=== PATIENT | male | born 1945 | race Caucasian/White ===

== ENCOUNTER 2023-11-24 18:35 | Emergency (ER) | payer OTHER ==
[2023-11-24] MEDS: Sodium Chloride 0.9% 1,000 ML IV STA ×2 (18:56→20:46)
[2023-11-24 19:07] LABS: BASE EXCESS VENOUS 5.4 (-2.0-3.0); PH,VENOUS 7.47 (7.31-7.41)
[2023-11-24 19:11] LABS: HEMATOCRIT 29.7 % (42.0-52.0); HEMOGLOBIN 10.3 g/dL (14.0-18.0); IMMATURE GRAN ABSOLUTE AUTO 0.02 K/uL (0.00-0.05); IMMATURE GRAN PERCENT AUTO 0.2 % (0.0-0.4); LYMPHOCYTES ABSOLUTE AUTO 0.38 K/uL (1.00-4.80); LYMPHOCYTES PERCENT AUTO 4.5 % (24.0-44.0); MEAN CORPUSCULAR HEMOGLOBIN 31.6 pg (28.0-32.0); MEAN CORPUSCULAR HGB CONC 34.7 g/dL (32.0-36.0); MEAN CORPUSCULAR VOLUME 91.1 fL (83.0-99.0); MONOCYTES PERCENT AUTO 9.5 % (0.0-8.0); NEUTROPHILS ABSOLUTE AUTO 7.18 K/uL (1.80-7.70); NEUTROPHILS PERCENT AUTO 85.8 % (41.0-71.0); PLATELET COUNT,PLT 280 K/uL (150-400); RED BLOOD CELL COUNT 3.26 M/uL (4.52-5.90); WHITE BLOOD CELL COUNT,WBC 8.38 K/uL (3.9-11.3)
[2023-11-24 19:32] LABS: A/G RATIO 0.6 (0.9-1.6); ALBUMIN 1.9 g/dL (3.4-5.0); BILIRUBIN TOTAL 0.3 mg/dL (0.2-1.0); CALCIUM 7.5 mg/dL (8.5-10.1); CARBON DIOXIDE,CO2 28.5 mmol/L (21.0-32.0); CREATININE 0.6 mg/dL (0.8-1.3); POTASSIUM,K 4.4 mmol/L (3.5-5.1); PROTEIN TOTAL,TP 5.2 g/dL (6.4-8.2)
[2023-11-24 19:34] LABS: MAGNESIUM 2.1 mg/dL (1.8-2.4)
[2023-11-24] MEDS: Levofloxacin/Dextrose 5%-Water 750 MG in Premix Bag 1 BAG IV STA (20:47)
== END 2023-11-24 22:24 | disposition home or self-care (01) ==
LOC: MW.ED 18:35
DX: R53.83 Other fatigue (principal); E87.1 Hypo-osmolality and hyponatremia; J18.9 Pneumonia, unspecified organism; Z79.899 Other long term (current) drug therapy; Z88.5 Allergy status to narcotic agent; Z75.8 Other problems related to medical facilities and other health care
CPT/HCPCS: 36415; 71045; 80053; 82803; 83735; 84484; 85025; 93005; 96361; 96365; 99285; J1956; J7030; 93010; 99283

== ENCOUNTER 2023-12-11 13:16 | Inpatient (IN) | payer OTHER ==
[2023-12-11] MEDS: Sodium Chloride 0.9% 10 ML Syringe FLUSH PRN (13:55)
[2023-12-11] MEDS: Sodium Chloride 0.9% 2.5 ML Syringe FLUSH PRN (13:55)
[2023-12-11] MEDS: Albuterol/Ipratropium 3.0-0.5 MG/3 ML Neb Soln NEB ONE ×2 (13:55→16:37)
[2023-12-11 14:14] LABS: BASE EXCESS VENOUS 6.7 (-2.0-3.0); PH,VENOUS 7.38 (7.31-7.41)
[2023-12-11 14:20] LABS: BASOPHILS ABSOLUTE AUTO 0.01 K/uL (0.00-0.20); BASOPHILS PERCENT AUTO 0.1 % (0.0-1.0); EOSINOPHILS ABSOLUTE AUTO 0.01 K/uL (0.00-0.45); EOSINOPHILS PERCENT AUTO 0.1 % (0.0-6.0); HEMATOCRIT 28.9 % (42.0-52.0); HEMOGLOBIN 9.7 g/dL (14.0-18.0); IMMATURE GRAN ABSOLUTE AUTO 0.28 K/uL (0.00-0.05); IMMATURE GRAN PERCENT AUTO 2.5 % (0.0-0.4); LYMPHOCYTES ABSOLUTE AUTO 0.77 K/uL (1.00-4.80); LYMPHOCYTES PERCENT AUTO 6.8 % (24.0-44.0); MEAN CORPUSCULAR HGB CONC 33.6 g/dL (32.0-36.0); MEAN CORPUSCULAR VOLUME 95.4 fL (83.0-99.0); MEAN PLATELET VOLUME 8.5 fL (9.4-12.4); MONOCYTES ABSOLUTE AUTO 0.62 K/uL (0.00-0.80); MONOCYTES PERCENT AUTO 5.5 % (0.0-8.0); NEUTROPHILS ABSOLUTE AUTO 9.67 K/uL (1.80-7.70); PLATELET COUNT,PLT 314 K/uL (150-400); RED BLOOD CELL COUNT 3.03 M/uL (4.52-5.90); WHITE BLOOD CELL COUNT,WBC 11.36 K/uL (3.9-11.3)
[2023-12-11] MEDS: Sodium Chloride 0.9% 500 ML IV SCH (14:22)
[2023-12-11 14:39] LABS: A/G RATIO 0.5 (0.9-1.6); ALBUMIN 1.7 g/dL (3.4-5.0); BILIRUBIN TOTAL 0.2 mg/dL (0.2-1.0); CALCIUM 7.7 mg/dL (8.5-10.1); CARBON DIOXIDE,CO2 32.3 mmol/L (21.0-32.0); CREATININE 0.6 mg/dL (0.8-1.3); EST CRCL DRUG DOSING (CG) 68.06 mL/min; MAGNESIUM 1.9 mg/dL (1.8-2.4); POTASSIUM,K 4.6 mmol/L (3.5-5.1); PROTEIN TOTAL,TP 5.1 g/dL (6.4-8.2)
[2023-12-11] MEDS: Sodium Chloride 0.9% 1,000 ML IV ONE ×2 (15:28→16:41)
[2023-12-11] MEDS: Cefepime 2 GM in Sodium Chloride 0.9% 50 ML IV ONE (15:30)
[2023-12-11] MEDS: Albuterol 0.083% 2.5 MG/3 ML Neb Soln NEB ONE (16:37)
[2023-12-11] MEDS: methylPREDNISolone Sodium Succinate 125 MG/2 ML SDV IVPUSH ONE (16:38)
[2023-12-11 16:49] LABS: LACTIC ACID 1.4 mmol/L (0.4-2.0)
[2023-12-11] MEDS: Midazolam 1 MG/ML 2 ML SDV IVPUSH ONE (17:22)
[2023-12-11] MEDS: Iopamidol 755 MG/ML 500 ML Multipack Bottle IVPUSH STA (17:28)
[2023-12-11 17:48] LABS: BASE EXCESS ARTERIAL 2.7 (-2.0-3.0); BICARBONATE,ARTERIAL 28 mEq/L (22-26); PCO2 ARTERIAL 49 mmHG (35-45); PO2 ARTERIAL 72 mmHG (80-105)
[2023-12-11 19:26] LABS: BODY FLUID TYPE PL
[2023-12-11] MEDS: Lidocaine 1% with EPINEPHrine 1:200,000 30 ML SDV INJECT ONE (19:32)
[2023-12-11 19:35] LABS: BODY FLUID TYPE PL
[2023-12-11 19:41] LABS: APPEARANCE,BODY FLUID CLOUDY; COLOR,BODY FLUID YELLOW
[2023-12-11 19:42] LABS: WBC BODY FLUID 215 /uL
[2023-12-11 19:43] LABS: RBC,BODY FLUID < 3000 /uL
[2023-12-11 19:56] LABS: GLUCOSE,BODY FLUID 107 mg/dL; PROTEIN,BODY FLUID 1.6 g/dL
[2023-12-12] MEDS: Azithromycin 500 MG in Sodium Chloride 0.9% 250 ML IV SCH (01:24)
[2023-12-12] MEDS: Cefepime 2 GM in Sodium Chloride 0.9% 50 ML IV SCH (02:53)
[2023-12-12] MEDS ORDERED: levETIRAcetam 500 MG Tab PO SCH (09:00)
[2023-12-12] MEDS: levETIRAcetam 500 MG Tab PO SCH (10:16)
[2023-12-12] MEDS: Furosemide 40 MG/4 ML VIAL IVPUSH SCH (11:58)
[2023-12-12] MEDS: Melatonin 3 MG Tab PO PRN (21:52)
[2023-12-13] MEDS: HYDROmorphone 0.5 MG/0.5 ML Syringe ONE (12:33)
[2023-12-13] MEDS ORDERED: Naloxone 0.4 MG/ML SDV IVPUSH PRN (13:50)
[2023-12-13] MEDS: HYDROmorphone 0.5 MG/0.5 ML Syringe IVPUSH PRN (21:39)
[2023-12-15] MEDS: LORazepam ORAL Concentrate 1MG/0.5ML U/D PO PRN (13:58)
== END 2023-12-16 12:15 | disposition hospice, home (50) | DRG 180 ==
LOC: MW.ED 13:16 → MW.MS 18:52 → OBSVTOIN 18:52
PROVIDERS: ADMIT Internal Medicine; ATTEND Internal Medicine
PROC: 5A09357 Assistance with Respiratory Ventilation, Less than 24 Consecutive Hours, Continuous Positive Airway Pressure (ICD-10-PCS; principal; 2023-12-11)
PROC: 4A13XR1 Monitoring of Arterial Saturation, Peripheral, External Approach (ICD-10-PCS; 2023-12-11)
DX: C34.91 Malignant neoplasm of unspecified part of right bronchus or lung (principal); J18.9 Pneumonia, unspecified organism; J96.01 Acute respiratory failure with hypoxia; C79.9 Secondary malignant neoplasm of unspecified site; J91.0 Malignant pleural effusion; I10 Essential (primary) hypertension; T45.1X5A Adverse effect of antineoplastic and immunosuppressive drugs, initial encounter; I95.9 Hypotension, unspecified; Z66 Do not resuscitate; Z51.5 Encounter for palliative care; R53.83 Other fatigue; J44.9 Chronic obstructive pulmonary disease, unspecified; E78.00 Pure hypercholesterolemia, unspecified; G89.29 Other chronic pain; M54.2 Cervicalgia; M81.0 Age-related osteoporosis without current pathological fracture; F41.9 Anxiety disorder, unspecified; F32.A Depression, unspecified; Z88.5 Allergy status to narcotic agent; Z95.2 Presence of prosthetic heart valve; Z79.899 Other long term (current) drug therapy
CPT/HCPCS: 32554; 32555; 36415; 36600; 71045; 71045-26; 71275; 71275-26; 74177; 74177-26; 80053; 82803; 82945; 83605; 83690; 83735; 84157; 84484; 85025; 87040; 87070; 87075; 87205; 89050; 93005; 93010; 94640; 96361; 96365; 96375; 99285; 99285-25; A9270-GY; J0456; J0692; J1170; J1940; J2250; J2919; J3490; J7030; J7040; J7050; J7620-GY; Q9967